=== PATIENT | female | born 1980 | race Caucasian/White ===

== ENCOUNTER 2024-07-01 19:44 | Emergency (ER) | payer OTHER ==
[2024-07-01 19:54] VITALS: BP 150/84; PULSE 79; RESP 18; TEMP 98.4; BMI 25.7
== END 2024-07-01 21:15 | disposition home or self-care (01) ==
LOC: JER 19:44
DX: N93.9 Abnormal uterine and vaginal bleeding, unspecified (principal)
CPT/HCPCS: 99283-25